=== PATIENT | male | born 1990 | race Caucasian/White ===

== ENCOUNTER 2018-08-31 21:36 | Emergency (ER) | payer SELFPAY ==
[~2018-08-31] VITALS: Ht 185.4 cm; Wt 99.8 kg
[~2018-08-31 21:36] MED LIST: ASPI-789 PO; CEPH-38 PO; CYCL10TA9 PO; GUAI5LIQ3 PO; HYDR-707 PO; METH4TAB PO; ONDN4T PO; PANT40TA2 PO; SULF1TAB38 PO
--- OUTSIDE RECORDS SUMMARY | 2018-08-31 21:42 | XMS REPORT | Continuity of Care Document ---
Author Author [facility] Organization [facility] Address Unknown Phone Unavailable Care Team Providers Care Telecommunications Technician Name Role Phone JACQUELINE HOUSER MD PP Insurance Providers Payer Name Policy Number Subscriber Name Relationship Self Pay Fortino Herrera 01 Self / Same As Patient Advance Directives Directive Response Recorded Date Advance Directives N 10/13/12 8:51pm Health Care Power of New Car Sales Manager N 10/13/12 8:51pm Organ Donor Y 10/13/12 8:51pm Problems No Known Problems or Medical conditions. Family History History Response Recorded Date/Time Hx Family Cancer Y GREAT GRANDMOTHER - BREAST CANCER, GREAT UNCLE - UNKNOWN WHAT KIND 08/20/10 2:05am Hx Family Breast Cancer Y GREAT GRANDMOTHER 08/20/10 2:05am Hx Family Lung Cancer UNKNOWN 08/20/10 2: 05am Hx Family Colorectal Cancer N 08/20/10 2: 05am Hx Family Cardiac Disorders UNKNOWN 08/20 2:05am Hx Family Cystic Fibrosis N 08/20/10 2: 05am Social History History Response Recorded Date/Time Alcohol Use Rarely Uses 10/13/12 8:51pm Recreational Drug Use N 10/13/12 8:51pm Sexually Transmitted Disease N 10/13/12 8 :51pm Allergies, Adverse Reactions, Alerts Allergen Type Severity Reaction Last Updated No Known Drug Allergies 09/20/12 Medications Medication Dose Units Route Sig Qty Days Guaifenesin/Dextromethorphan (Guaifenesin-Dm Solution) 10 Ml PO Q4H PRN 4 Cephalexin Monohydrate (Keflex) 1 Each PO TID 7 Methylprednisolone (Medrol Dose Pack) 1 Packet PO UD 1 Cyclobenzaprine HCl (Cyclobenzaprine Hcl) 1 Each PO Q8HR PRN 20 Acetaminophen/Hydrocodone Bitart (Lortab 5-500 Tablet) 1 Each PO Q 4 - 6 HR PRN 14 Response Recorded Date/Time Status not known Unknown Results Test Date Result Interp. Ref. Range Acetaminophen Level August 21, 2010 8:13am < 10 UG/ML L 10.0-30.0 Acetaminophen Screen August 20, 2010 12:59am POSITIVE H - Alanine Aminotransferase (ALT/SGPT) June 09, 2012 9: 45pm 30 U/L N 30-65 Albumin June 09, 2012 9:45pm 3.9 G/ DL N 3.4-5.0 Alkaline Phosphatase June 09, 2012 9:45pm 98 U/L N 50-136 Aspartate Amino Transf (AST/SGOT) June 09, 2012 9:45pm 14 U/L L 15-37 BUN/Creatinine Ratio June 09, 2012 9:45pm 15 - Basophils # (Auto) June 09, 2012 9:45pm 0.0 10^3/uL N 0.0-0.1 Basophils (%) (Auto) June 09, 2012 9:45pm 0 % N 0-10 Blood Urea Nitrogen June 09, 2012 9:45pm 18 MG/DL N 7-18 Calcium Level June 09, 2012 9:45pm 8.8 MG/DL N 8.5-10.1 Carbon Dioxide Level June 09, 2012 9:45pm 26 MMOL/L N 21-32 Chloride Level June 09, 2012 9:45pm 103 MMOL/L N 101-110 Creatinine June 09, 2012 9:45pm 1.2 MG/DL N 0.6-1.3 Eosinophils # (Auto) June 09, 2012 9:45pm 0.0 10^3/uL N 0.0-0.3 Eosinophils (%) (Auto) June 09, 2012 9:45pm 0 % N 0-10 Glucose Level June 09, 2012 9:45pm 140 MG/DL H 74-106 Group A Streptococcus Screen June 09, 2012 10:23pm NEGATIVE - Hematocrit June 09, 2012 9:45pm 43 % N 40-54 Hemoglobin June 09, 2012 9:45pm 15.8 G/DL N 13.3-17.7 Lymphocytes # (Auto) June 09, 2012 9:45pm 1.7 X 10^3 N 1.0-4.0 Lymphocytes (%) (Auto) June 09, 2012 9:45pm 15 % N 12-44 Mean Corpuscular Hemoglobin June 09, 2012 9:45pm 33 PG N 25-34 Mean Corpuscular Hemoglobin Concent June 09, 2012 9: 45pm 36 G/DL N 32-36 Mean Corpuscular Volume June 09, 2012 9:45pm 91 FL N 80-99 Mean Platelet Volume June 09, 2012 9:45pm 10.3 FL N 7.4-10.4 Monocytes # (Auto) June 09, 2012 9:45pm 0.8 X 10^3 N 0.0-1.0 Monocytes (%) (Auto) June 09, 2012 9:45pm 7 % N 0-12 Neutrophils # (Auto) June 09, 2012 9:45pm 8.7 X 10^3 H 1.8-7.8 Neutrophils (%) (Auto) June 09, 2012 9:45pm 77 % H 42-75 Platelet Count June 09, 2012 9:45pm 250 10^3/uL N 130-400 Potassium Level June 09, 2012 9:45pm 3.7 MMOL/L N 3.6-5.0 Red Blood Count June 09, 2012 9:45pm 4.77 10^6/uL N 4.35-5.85 Red Cell Distribution Width June 09, 2012 9:45pm 13.0 % N 10.0-14.5 Salicylates Level August 20, 2010 12:52am 3.8 MG/DL N 2.8-20.0 Sodium Level June 09, 2012 9:45pm 137 MMOL/L N 135-145 Total Bilirubin June 09, 2012 9:45pm 0.5 MG/DL N 0.0-1.0 Total Protein June 09, 2012 9:45pm 7.1 G/DL N 6.4-8.2 Ur Tricyclic Antidepressants Screen August 20, 2010 12:59am NEGATIVE - Urine Amorphous Sediment June 09, 2012 10:17pm FEW ÁNGELA URATES /LPF H - Urine Amphetamines Screen August 20, 2010 12:59am NEGATIVE - Urine Bacteria June 09, 2012 10:17pm NEGATIVE /HPF - Urine Barbiturates Screen August 20, 2010 12:59am NEGATIVE - Urine Benzodiazepines Screen August 20, 2010 12:59am NEGATIVE - Urine Bilirubin June 09, 2012 10:17pm NEGATIVE - Urine Casts June 09, 2012 10:17pm NONE /LPF - Urine Clarity June 09, 2012 10:17pm CLEAR - Urine Cocaine Screen August 20, 2010 12:59am NEGATIVE - Urine Color June 09, 2012 10:17pm YELLOW - Urine Crystals June 09, 2012 10:17pm PRESENT /LPF H - Urine Culture Indicated June 09, 2012 10:17pm NO - Urine Glucose (UA) June 09, 2012 10:17pm TRACE H - Urine Ketones June 09, 2012 10:17pm NEGATIVE - Urine Leukocyte Esterase June 09, 2012 10:17pm NEGATIVE - Urine Methamphetamines Screen August 20, 2010 12:59am NEGATIVE - Urine Mucus June 09, 2012 10:17pm SMALL /LPF H - Urine Nitrite June 09, 2012 10:17pm NEGATIVE - Urine Opiates Screen August 20, 2010 12:59am POSITIVE H - Urine Phencyclidine Screen August 20, 2010 12:59am NEGATIVE - Urine Protein June 09, 2012 10:17pm NEGATIVE - Urine RBC June 09, 2012 10:17pm NONE /HPF - Urine Specific [place] June 09, 2012 10:17pm 1.025 H - Urine Urobilinogen June 09, 2012 10:17pm 1 MG/DL - Urine WBC June 09, 2012 10:17pm 0-2 /HPF - Urine pH June 09, 2012 10:17pm 6 - White Blood Count June 09, 2012 9:45pm 11.2 10^3/uL H 4.3-11.0 Serum Alcohol August 20, 2010 12:52am < 5 MG/DL -5 Glucometer August 21, 2010 6:44am 79 MG/ DL N 70-110 Lab Scanned Report December 06, 2011 1:36pm LAB Reports [id number] - Estimat Glomerular Filtration Rate June 09, 2012 9:45pm > 60 - Urine Methadone Screen August 20, 2010 12:59am NEGATIVE - Urine Cannabinoids Screen August 20, 2010 12:59am NEGATIVE - Urine RBC (Auto) June 09, 2012 10:17pm NEGATIVE - Procedures Procedure Code Date Throat Culture 06/09/12 Encounters Encounter Location Date/Time Departed Emergency Room [facility] 02/15 8:42pm Registered Emergency Room [facility] 09/17/12 1:28pm Discharged Inpatient [facility] 2:05am
--- OUTSIDE RECORDS SUMMARY | 2018-08-31 21:43 | XMS REPORT | Continuity of Care Document ---
Author Organization Unknown Address Unknown Allergies Active Description Code Type Severity Reaction Onset Reported/Identified Relationship to Patient Clinical Status Yes No Known Drug Allergies [id number] Drug Allergy Unknown N/A 09/20/2012 Yes No Known Allergies No Known Allergies Drug Allergy Unknown N/A 2014 Medications There is no data. Problems Date Dx Coded Attending Type Code Diagnosis Diagnosed By 08/21/2010 Ot 311 DEPRESSIVE DISORDER NEC 08/21/2010 Ot 965.09 POISONING- OPIATES NEC 08/21/2010 Ot 967.8 POIS-SEDATIVE /HYPNOT NEC 08/21/2010 Ot 972.6 POIS- ANTIHYPERTEN AGENT 08/21/2010 Ot E849.0 ACCIDENT IN HOME 08/21/2010 Ot E950.0 SUICIDE- ANALGESICS 08/21/2010 Ot E950.2 SUICIDE- SEDAT/HYPNOTIC 08/21/2010 Ot E950.4 SUICIDE-DRUG /MEDICIN NEC 06/09/2012 Ot 708.9 URTICARIA NOS 06/09/2012 Ot 782.1 NONSPECIF SKIN ERUPT NEC 06/09/2012 Ot 708.9 URTICARIA NOS 06/09/2012 Ot 782.1 NONSPECIF SKIN ERUPT NEC 06/17/2012 Ot 850.5 CONCUSSION W COMA NOS 06/17/2012 Ot 873.42 OPEN WOUND OF FOREHEAD 06/17/2012 Ot 959.01 HEAD INJURY , NOS 06/17/2012 Ot E000.8 OTHER EXTERNAL CAUSE STATUS 06/17/2012 Ot E849.0 ACCIDENT IN HOME 06/17/2012 Ot E888.1 FALL STRIKING OBJECT NEC 06/22/2012 Ot V58.32 ENCOUNTER FOR REMOVAL OF SUTURES 08/29/2012 MIK PALACIO, ALOK Abbott Ot 078.11 CONDYLOMA ACUMINATUM 08/29/2012 ALOK HOUSER MD Ot 569.3 RECTAL ANAL HEMORRHAGE 09/17/2012 MARISA PALACIO, MADISON Soler Ot 604.0 ORCHITIS WITH ABSCESS 10/13/2012 MIK PALACIO, ALOK Abbott Ot 462 ACUTE PHARYNGITIS 10/13/2012 MIK PALACIO, ALOK Abbott Ot 466.0 ACUTE BRONCHITIS 03/21/2016 [facility] Lori Ot F17.210 NICOTINE DEPENDENCE, CIGARETTES, UNCOMPL 03/21/2016 JU[facility] PIOTR K Ot R10.84 GENERALIZED [facility]BDOMINAL [facility] DIZZINESS AND GIDDINESS 03/21/2016 [facility] R53.83 OTHER FATIGUE 03/21/2016 [facility]55 SYNCOPE AND COLLAPSE 03/21/2016 [place] [facility] LUZ Ot S00.03XA CONTUSION OF SCALP, INITIAL ENCOUNTER 03/21/2016 JU[facility] PIOTR LUZ Ot S09.90XA UNSPECIFIED INJURY OF HEAD, INITIAL ENCO 03/21/2016 [facility] PIOTR Ot S16.1XXA STRAIN OF MUSCLE, FASCIA AND TENDON AT N 03/21/2016 [facility] PI[facility] LUZ Ot S29.012A STRAIN OF MUSCLE AND TENDON OF BACK WALL 03/21/2016 JUAN DOPIOTR Ot S39.012A STRAIN OF MUSCLE, FASCIA AND TENDON OF L 03/21/2016 [facility] PIOTR Ot W18.30XA FALL ON SAME LEVEL, UNSPECIFIED, INITIAL 03/21/2016 [facility] Lori Ot Y92.[address] OF OCCURRENCE OF THE EX 03/21/2016 [facility] PIOT[facility] Lori Ot Y93.9 ACTIVITY, UNSPECIFIED 03/21/2016 [facility] Lori Ot Y99.8 OTHER EXTERNAL CAUSE STATUS 03/22/2016 [facility] PI[facility] Lori Ot F17.210 NICOTINE DEPENDENCE, CIGARETTES, UNCOMPL 03/22/2016 [facility] PI[facility] LUZ Ot R10.84 GENERALIZED ABDOMINAL PAIN 03/22/2016 [facility] DIZZINESS AND GIDDINESS 03/22/2016 JUAN DOPIOTR Ot R53.83 OTHER FATIGUE 03/22/2016 [facility] SYNCOPE AND COLLAPSE 03/22/2016 [facility] S00.03XA CONTUSION OF SCALP, INITIAL ENCOUNTER 03/22/2016 [facility] LUZ Ot S09.90XA UNSPECIFIED INJURY OF HEAD, INITIAL ENCO 03/22/2016 [place] [facility] K Ot S16.1XXA STRAIN OF MUSCLE, FASCIA AND TENDON AT N 03/22/2016 [facility] PI[facility] Lori Ot S29.012A STRAIN OF MUSCLE AND TENDON OF BACK WALL 03/22/2016 [facility] PI[facility] Sandoval Ot S39.012A STRAIN OF MUSCLE, FASCIA AND TENDON OF L 03/22/2016 [facility] W18.30XA FALL ON SAME LEVEL, UNSPECIFIED, INITIAL 03/22/2016 [facility] PIOT[facility] K Ot Y92.[address] OF OCCURRENCE OF THE EX 03/22/2016 [facility] Lori Ot Y93.9 ACTIVITY, UNSPECIFIED 03/22/2016 [facility] PI[facility] K Ot Y99.8 OTHER EXTERNAL CAUSE STATUS 03/25/2016 [facility] PI[facility] K Ot F17.210 NICOTINE DEPENDENCE, CIGARETTES, UNCOMPL 03/25/2016 [facility] PIOTR K Ot R10.84 GENERALIZED ABDOMINAL PAIN 03/25/2016 [facility] PIOTR K Ot R42 DIZZINESS AND GIDDINESS 03/25/2016 [facility] PIOT[facility] K Ot R53.83 OTHER FATIGUE 03/25/2016 [facility] PI[facility] Lori Ot R55 SYNCOPE AND COLLAPSE 03/25/2016 [facility] PI[facility] K Ot S00.03XA CONTUSION OF SCALP, INITIAL ENCOUNTER 03/25/2016 [facility] PIOTR K Ot S09.90XA UNSPECIFIED INJURY OF HEAD, INITIAL ENCO 03/25/2016 [place] [facility] Sandoval Ot S16.1XXA STRAIN OF MUSCLE, FASCIA AND TENDON AT N 03/25/2016 [facility] PIOT[facility] Sandoval Ot S29.012A STRAIN OF MUSCLE AND TENDON OF BACK WALL 03/25/2016 [facility] PIOTR Sandoval Ot S39.012A STRAIN OF MUSCLE, FASCIA AND TENDON OF L 03/25/2016 [facility] W18.30XA FALL ON SAME LEVEL, UNSPECIFIED, INITIAL 03/25/2016 [facility] PIOTR K Ot Y92.[address] OF OCCURRENCE OF THE EX 03/25/2016 [facility] PIOTR K Ot Y93.9 ACTIVITY, UNSPECIFIED 03/25/2016 [facility] PIOTR Sandoval Ot Y99.8 OTHER EXTERNAL CAUSE STATUS 03/27/2016 [facility] PI[facility] LUZ Ot F17.210 NICOTINE DEPENDENCE, CIGARETTES, UNCOMPL 03/27/2016 [facility] PI[facility] K Ot R10.84 GENERALIZED ABDOMINAL PAIN 03/27/2016 [place] [facility] K Ot R42 DIZZINESS AND GIDDINESS 03/27/2016 [place] [facility] Ot R53.83 OTHER FATIGUE 03/27/2016 [place] PIOT[facility] Ot R55 SYNCOPE AND COLLAPSE 03/27/2016 [place] PI[facility] K Ot S00.03XA CONTUSION OF SCALP, INITIAL ENCOUNTER 03/27/2016 [facility] PI[facility] K Ot S09.90XA UNSPECIFIED INJURY OF HEAD, INITIAL ENCO 03/27/2016 [place] [facility] K Ot S16.1XXA STRAIN OF MUSCLE, FASCIA AND TENDON AT N 03/27/2016 [facility] PIOTR Ot S29.012A STRAIN OF MUSCLE AND TENDON OF BACK WALL 03/27/2016 [facility] S39.012A STRAIN OF MUSCLE, FASCIA AND TENDON OF L 03/27/2016 [place] [facility] Lori Ot W18.30XA FALL ON SAME LEVEL, UNSPECIFIED, INITIAL 03/27/2016 [facility] PIOT[facility] Sandoval Ot Y92.[address] OF OCCURRENCE OF THE EX 03/27/2016 [facility] PIOT[facility] Lori Ot Y93.9 ACTIVITY, UNSPECIFIED 03/27/2016 [facility] Sandoval Ot Y99.8 OTHER EXTERNAL CAUSE STATUS 04/05/2016 [facility] PI[facility] Sandoval Ot F17.210 NICOTINE DEPENDENCE, CIGARETTES, UNCOMPL 04/05/2016 [facility] PI[facility] Lori Ot R10.84 GENERALIZED ABDOMINAL PAIN 04/05/2016 [facility] PIOT[facility] K Ot R42 DIZZINESS AND GIDDINESS 04/05/2016 [facility] PIOTR Ot R53.83 OTHER FATIGUE 04/05/2016 [place] [facility] K Ot R55 SYNCOPE AND COLLAPSE 04/05/2016 [place] [facility] K Ot S00.03XA CONTUSION OF SCALP, INITIAL ENCOUNTER 04/05/2016 [facility] PIOTR Ot S09.90XA UNSPECIFIED INJURY OF HEAD, INITIAL ENCO 04/05/2016 PIOTR MARTINEZ DO K Ot S16.1XXA STRAIN OF MUSCLE, FASCIA AND TENDON AT N 04/05/2016 [facility] PIOTR K Ot S29.012A STRAIN OF MUSCLE AND TENDON OF BACK WALL 04/05/2016 ANDRIA MARTINEZ DOA K Ot S39.012A STRAIN OF MUSCLE, FASCIA AND TENDON OF L 04/05/2016 PIOTR MARTINEZ DO K Ot W18.30XA FALL ON SAME LEVEL, UNSPECIFIED, INITIAL 04/05/2016 PIOTR MARTINEZ DO K Ot Y92.[address] OF OCCURRENCE OF THE EX 04/05/2016 [facility] PIOTR K Ot Y93.9 ACTIVITY, UNSPECIFIED 04/05/2016 [facility] PIOTR K Ot Y99.8 OTHER EXTERNAL CAUSE STATUS 04/14/2016 EVONNE CARCAMO MD J Ot R11.2 NAUSEA WITH VOMITING, UNSPECIFIED 04/14/2016 WINST[place] CARCAMO MDUS J Ot R55 SYNCOPE AND COLLAPSE 04/16/2016 CARLOS ALBERTO PALACIO EVONNE J Ot R11.2 NAUSEA WITH VOMITING, UNSPECIFIED 04/16/2016 CARLOS ALBERTO PALACIO EVONNE J Ot R55 SYNCOPE AND COLLAPSE 04/17/2016 CARLOS ALBERTO PALACIO EVONNE J Ot R11.2 NAUSEA WITH VOMITING, UNSPECIFIED 04/17/2016 CARLOS ALBERTO PALACIO EVONNE J Ot R55 SYNCOPE AND COLLAPSE 07/27/2016 CARLOS ALBERTO PALACIO EVONNE J Ot R11.2 NAUSEA WITH VOMITING, UNSPECIFIED 07/27/2016 CARLOS ALBERTO PALACIO EVONNE J Ot R55 SYNCOPE AND COLLAPSE Procedures There is no data. Results Test Result Range Complete blood count (CBC) with automated white blood cell (WBC) differential - 03/21/16 18:15 Blood leukocytes automated count (number/volume) 6.7 10*3/uL 4.3-11.0 Blood erythrocytes automated count (number/volume) 4.92 10*6/uL 4.35-5.85 Venous blood hemoglobin measurement (mass/volume) 15.6 g/dL 13.3-17.7 Blood hematocrit (volume fraction) 45 % 40-54 Automated erythrocyte mean corpuscular volume 91 [foz_us] 80-99 Automated erythrocyte mean corpuscular hemoglobin (mass per erythrocyte) 32 pg 25-34 Automated erythrocyte mean corpuscular hemoglobin concentration measurement ( mass/volume) 35 g/dL 32-36 Automated erythrocyte distribution width ratio 13.2 % 10.0-14.5 Automated blood platelet count (count/volume) 219 10*3/uL 130-400 Automated blood platelet mean volume measurement 11.0 [foz_us] 7.4-10.4 Automated blood neutrophils/100 leukocytes 47 % 42-75 Automated blood lymphocytes/100 leukocytes 39 % 12-44 Blood monocytes/100 leukocytes 9 % 0-12 Automated blood eosinophils/100 leukocytes 4 % 0-10 Automated blood basophils/100 leukocytes 1 % 0-10 Blood neutrophils automated count (number/volume) 3.1 10*3 1.8-7.8 Blood lymphocytes automated count (number/volume) 2.6 10*3 1.0-4.0 Blood monocytes automated count (number/volume) 0.6 10*3 0.0-1.0 Automated eosinophil count 0.3 10*3/uL 0.0-0.3 Automated blood basophil count (count/volume) 0.1 10*3/uL 0.0-0.1 PT panel in platelet poor plasma by coagulation assay - 03/21/16 18:15 Prothrombin time (PT) in platelet poor plasma by coagulation assay 12.8 s 12.2-14.7 INR in platelet poor plasma or blood by coagulation assay 1.0 0.8-1.4 Activated partial thromboplastin time (aPTT) in platelet poor plasma bycoagulation assay - 03/21/16 18:15 Activated partial thromboplastin time (aPTT) in platelet poor plasma bycoagulation assay 20 s 24-35 Comprehensive metabolic panel - 03/21/16 18:15 Serum or plasma sodium measurement (moles/volume) 138 mmol/L 135-145 Serum or plasma potassium measurement (moles/volume) 4.2 mmol/L 3.6-5.0 Serum or plasma chloride measurement (moles/volume) 105 mmol/L 98-107 Carbon dioxide 23 mmol/L 21-32 Serum or plasma anion gap determination (moles/volume) 10 mmol/L 5-14 Serum or plasma urea nitrogen measurement (mass/volume) 14 mg/dL 7-18 Serum or plasma creatinine measurement (mass/volume) 1.09 mg/dL 0.60-1.30 Serum or plasma urea nitrogen/creatinine mass ratio 13 NRG Serum or plasma creatinine measurement with calculation of estimated glomerular filtration rate > NRG Serum or plasma glucose measurement (mass/volume) 91 mg/dL 70-105 Serum or plasma calcium measurement (mass/volume) 9.3 mg/dL 8.5-10.1 Serum or plasma total bilirubin measurement (mass/volume) 0.3 mg/dL 0.1-1.0 Serum or plasma alkaline phosphatase measurement (enzymatic activity/volume) 93 U/L 40-136 Serum or plasma aspartate aminotransferase measurement (enzymatic activity/ volume) 31 U/L 5-34 Serum or plasma alanine aminotransferase measurement (enzymatic activity/volume ) 45 U/L 0-55 Serum or plasma protein measurement (mass/volume) 6.7 g/dL 6.4-8.2 Serum or plasma albumin measurement (mass/volume) 4.2 g/dL 3.2-4.5 Magnesium - 03/21/16 18:15 Magnesium 2.1 mg/dL 1.8-2.4 Serum or plasma creatine kinase measurement (enzymatic activity/volume) - 03/21 18:15 Serum or plasma creatine kinase measurement (enzymatic activity/volume) 73 U/L 30-200 Serum or plasma creatine kinase MB measurement (enzymatic activity/volume) - 18:15 Serum or plasma creatine kinase MB measurement (enzymatic activity/volume) 0.5 ng/mL <6.6 Serum or plasma troponin i.cardiac measurement (mass/volume) - 03/21/16 18:15 Serum or plasma troponin i.cardiac measurement (mass/volume) < ng/ mL <0.30 Serum or plasma thyrotropin measurement by detection limit <=0.05 miu/l (units/ volume) - 03/21/16 18:15 Serum or plasma thyrotropin measurement by detection limit <=0.05 miu/l (units/ volume) 2.71 u[iU]/mL 0.35-4.94 Serum or plasma salicylates measurement (mass/volume) - 03/21/16 18:15 Serum or plasma salicylates measurement (mass/volume) < mg/dL 5.0-20.0 Serum or plasma acetaminophen measurement (mass/volume) - 03/21/16 18:15 Serum or plasma acetaminophen measurement (mass/volume) < ug/mL 10-30 Serum or plasma ethanol measurement (mass/volume) - 11/16/16 18:15 Serum or plasma ethanol measurement (mass/volume) < mg/dL <10 Complete urinalysis with reflex to culture - 03/21/16 19:28 Urine color determination YELLOW NRG Urine clarity determination CLEAR NRG Urine pH measurement by test strip 7 5-9 Specific gravity of urine by test strip 1.010 1.016- 1.022 Urine protein assay by test strip, semi-quantitative NEGATIVE NEGATIVE Urine glucose detection by automated test strip NEGATIVE NEGATIVE Erythrocytes detection in urine sediment by light microscopy NEGATIVE NEGATIVE Urine ketones detection by automated test strip NEGATIVE NEGATIVE Urine nitrite detection by test strip NEGATIVE NEGATIVE Urine total bilirubin detection by test strip NEGATIVE NEGATIVE Urine urobilinogen measurement by automated test strip (mass/volume) NORMAL NORMAL Urine leukocyte esterase detection by dipstick NEGATIVE NEGATIVE Automated urine sediment erythrocyte count by microscopy (number/high power field) NONE NRG Automated urine sediment leukocyte count by microscopy (number/high power field ) RARE NRG Bacteria detection in urine sediment by light microscopy NEGATIVE NRG Crystals detection in urine sediment by light microscopy NONE NRG Casts detection in urine sediment by light microscopy NONE NRG Mucus detection in urine sediment by light microscopy SMALL NRG Complete urinalysis with reflex to culture NO NRG Urine drug screening test - 03/21/16 19:28 Urine phencyclidine detection by screening method NEGATIVE NEGATIVE Urine benzodiazepines detection by screening method NEGATIVE NEGATIVE Urine cocaine detection NEGATIVE NEGATIVE Urine amphetamines detection by screening method NEGATIVE NEGATIVE Urine methamphetamine detection by screening method NEGATIVE NEGATIVE Urine cannabinoids detection by screening method NEGATIVE NEGATIVE Urine opiates detection by screening method NEGATIVE NEGATIVE Urine barbiturates detection NEGATIVE NEGATIVE Screening urine tricyclic antidepressants detection NEGATIVE NEGATIVE Urine methadone detection by screening method NEGATIVE NEGATIVE Urine oxycodone detection NEGATIVE NEGATIVE Urine propoxyphene detection NEGATIVE NEGATIVE Capillary blood glucose measurement by glucometer (mass/volume) - 04/14/16 14: 22 Capillary blood glucose measurement by glucometer (mass/volume) 121 mg/dL 70-110 Complete blood count (CBC) with automated white blood cell (WBC) differential - 04/14/16 14:51 Blood leukocytes automated count (number/volume) 9.0 10*3/uL 4.3-11.0 Blood erythrocytes automated count (number/volume) 5.18 10*6/uL 4.35-5.85 Venous blood hemoglobin measurement (mass/volume) 16.5 g/dL 13.3-17.7 Blood hematocrit (volume fraction) 47 % 40-54 Automated erythrocyte mean corpuscular volume 92 [foz_us] 80-99 Automated erythrocyte mean corpuscular hemoglobin (mass per erythrocyte) 32 pg 25-34 Automated erythrocyte mean corpuscular hemoglobin concentration measurement ( mass/volume) 35 g/dL 32-36 Automated erythrocyte distribution width ratio 13.1 % 10.0-14.5 Automated blood platelet count (count/volume) 187 10*3/uL 130-400 Automated blood platelet mean volume measurement 10.6 [foz_us] 7.4-10.4 Automated blood neutrophils/100 leukocytes 86 % 42-75 Automated blood lymphocytes/100 leukocytes 6 % 12-44 Blood monocytes/100 leukocytes 6 % 0-12 Automated blood eosinophils/100 leukocytes 2 % 0-10 Automated blood basophils/100 leukocytes 0 % 0-10 Blood neutrophils automated count (number/volume) 7.7 10*3 1.8-7.8 Blood lymphocytes automated count (number/volume) 0.6 10*3 1.0-4.0 Blood monocytes automated count (number/volume) 0.5 10*3 0.0-1.0 Automated eosinophil count 0.2 10*3/uL 0.0-0.3 Automated blood basophil count (count/volume) 0.0 10*3/uL 0.0-0.1 Comprehensive metabolic panel - 04/14/16 14:51 Serum or plasma sodium measurement (moles/volume) 137 mmol/L 135-145 Serum or plasma potassium measurement (moles/volume) 4.4 mmol/L 3.6-5.0 Serum or plasma chloride measurement (moles/volume) 106 mmol/L 98-107 Carbon dioxide 20 mmol/L 21-32 Serum or plasma anion gap determination (moles/volume) 11 mmol/L 5-14 Serum or plasma urea nitrogen measurement (mass/volume) 15 mg/dL 7-18 Serum or plasma creatinine measurement (mass/volume) 1.16 mg/dL 0.60-1.30 Serum or plasma urea nitrogen/creatinine mass ratio 13 NRG Serum or plasma creatinine measurement with calculation of estimated glomerular filtration rate > NRG Serum or plasma glucose measurement (mass/volume) 109 mg/dL 70-105 Serum or plasma calcium measurement (mass/volume) 9.1 mg/dL 8.5-10.1 Serum or plasma total bilirubin measurement (mass/volume) 0.6 mg/dL 0.1-1.0 Serum or plasma alkaline phosphatase measurement (enzymatic activity/volume) 94 U/L 40-136 Serum or plasma aspartate aminotransferase measurement (enzymatic activity/ volume) 17 U/L 5-34 Serum or plasma alanine aminotransferase measurement (enzymatic activity/volume ) 26 U/L 0-55 Serum or plasma protein measurement (mass/volume) 6.9 g/dL 6.4-8.2 Serum or plasma albumin measurement (mass/volume) 4.4 g/dL 3.2-4.5 Blood manual differential performed detection - 04/14/16 14:51 Blood monocytes/100 leukocytes 4 % NR Manual blood segmented neutrophils/100 leukocytes 89 % NRG Manual blood lymphocytes/100 leukocytes 2 % NRG Manual eosinophils/100 leukocytes in nose 1 % NRG Manual blood basophils/100 leukocytes 1 % NRG Blood lymphocytes variant/100 leukocytes 3 % NR Blood erythrocyte morphology finding identification NORMAL [facility] Radiology Report from SANDRA on 11/24/2014 07:17:00 DIAGNOSTIC IMAGING REPORT [facility] - [address] [place] [address] PHONE #: [phone] FAX #: [phone] ------- Name: CHARMAINE HERRERA Loc: [facility] Radiology No: : 1989 Age: 24 Sex: M Status: DEP ER Unit No: [id number] Phys: Caleb Whaley APRN Acct: [id number] Reason For Exam: cough, pain Exam Date: 11/23/2014 EXAMS: CPT CODE: [id number] CHEST AP/PA LATERAL 73919 TIME OF EXAM: 11/23/2014 11:47 PM REASON FOR EXAM: cough, pain COMPARISON: None. PA and lateral views of the chest were obtained lines and tubes: None lungs and pleura: clear lungs with no pleural effusion. No pneumothorax vascularity: normal cardiac and mediastinal silhouette: normal other significant findings: Note is made of a normal variant, an azygos fissure IMPRESSION: 1. No acute process. at 0712 Reported and signed by: SALAZAR KIMBALL MD CC: Technologist: TOD DUNCAN Transcribed Date/Time: 2014 (711)Surgical Instrument Technician: MAULIK Printed Date/ Time: 11/24/2014 (07) BATCH NO: N/A PAGE 1 Signed Report Encounters ACCT No. Visit Date/Time Discharge Status Pt. Type Provider Facility Loc./Unit Complaint [id number] 04/14/2016 14:05:00 04/14/2016 16:09:00 DIS Emergency CARLOS ALBERTO PALACIO, EVONNE Zavala [facility] ER FAINTED/HEAD INJ/VOMITING [id number] 03/21/2016 17:59:00 03/21/2016 20:41:00 DIS Emergency PIOTR MARTINEZ DO [facility] ER DIZZINESS [id number] 10/13/2012 20:42:00 10/13/2012 21:42:00 DIS Emergency ALOK HOUSER MD [facility] ER WHEEZING,SORE THROAT [id number] 09/17/2012 13:28:00 09/17/2012 15:12:00 DIS Emergency MADISON CUNNINGHAM MD [facility] ER POSS ABSCESS [id number] 08/29/2012 20:34:00 08/29/2012 21:08:00 DIS Emergency ALOK HOUSER MD [facility] ER GENITAL BLEEDING [id number] 08/28/2012 12:33:00 08/28/2012 23:59:59 CLS Outpatient MAJOR, SOLIS RELIGIOUS ACTIVITIES DIRECTOR [facility] QUICK LUMP ON SCROTUM [id number] 04/17/2017 16:08:00 Document Registration [id number] 04/17/2017 16:08:00 Document Registration [id number] 04/17/2017 16:08:00 Document Registration [id number] 06/22/2012 17:20:00 Document Registration [id number] 06/17/2012 09:50:00 Document Registration [id number] 06/09/2012 21:16:00 Document Registration [id number] 06/09/2012 04:29:00 Document Registration [id number] 08/20/2010 02:05:00 Document Registration [id number] 11/23/2014 23:19:00 11/24/2014 00:50:00 [facility]EDW [email or web address] 11/23/2014 23:52:50 ACT Document Registration
--- OUTSIDE RECORDS SUMMARY | 2018-08-31 21:43 | XMS REPORT | Continuity of Care Document ---
Author Author [facility] Organization [facility] Address Unknown Phone Unavailable Care Team Providers Care Annual Giving Manager Name Role Phone JACQUELINE HOUSER MD PP Insurance Providers Payer Name Policy Number Subscriber Name Relationship Self Pay Fortino Herrera 01 Self / Same As Patient Advance Directives Directive Response Recorded Date Advance Directives N 09/17/12 1:37pm Health Care Power of Outside Machinist Apprentice N 09/17/12 1:37pm Organ Donor Y 09/17/12 1:37pm Problems No Known Problems or Medical conditions. Family History History Response Recorded Date/Time Hx Family Cancer Y GREAT GRANDMOTHER - BREAST CANCER, GREAT UNCLE - UNKNOWN WHAT KIND 08/20/10 2:05am Hx Family Breast Cancer Y GREAT GRANDMOTHER 08/20/10 2:05am Hx Family Lung Cancer UNKNOWN 08/20/10 2: 05am Hx Family Colorectal Cancer N 08/20/10 2: 05am Social History History Response Recorded Date/Time Alcohol Use Rarely Uses 09/17/12 1:37pm Recreational Drug Use N 09/17/12 1:37pm Allergies, Adverse Reactions, Alerts Allergen Type Severity Reaction Last Updated Amoxicillin Allergy 08/29/12 Medications Medication Dose Units Route Sig Qty Days Trimethoprim/Sulfamethoxazole (Bactrim Ds) 1 Ea PO BID 10 Methylprednisolone (Medrol Dose Pack) 1 Packet PO UD 1 Cyclobenzaprine HCl (Cyclobenzaprine Hcl) 1 Each PO Q8HR PRN 20 Acetaminophen/Hydrocodone Bitart (Lortab 5-500 Tablet) 1 Each PO Q 4 - 6 HR PRN 14 Immunizations Name Given Type influenza, split (incl. purified surface antigen) 06/22/12 A Response Recorded Date/Time Status not known Unknown [...] 2012 10:17pm NONE /HPF - Urine Specific [place] June 09, 2012 10:17pm 1.025 H - [...] Report December 06, 2011 1:36pm LAB Reports [id number] - Estimat Glomerular Filtration Rate June 09, 2012 9:45pm > 60 - Urine Methadone Screen August 20, 2010 12:59am NEGATIVE - Urine Cannabinoids Screen August 20, 2010 12:59am NEGATIVE - Urine RBC (Auto) June 09, 2012 10:17pm NEGATIVE - Procedures Procedure Code Date Throat Culture 06/09/12 Encounters Encounter Location Date/Time Registered Emergency Room [facility] 09/17/12 1:28pm Departed Emergency Room [facility] 8:34pm Discharged Inpatient [facility] 2:05am
--- OUTSIDE RECORDS SUMMARY | 2018-08-31 21:43 | XMS REPORT | Continuity of Care Document ---
Author Author [facility] Organization [facility] Address Unknown Phone Unavailable Care Team Providers Care Sizing End Bander Name Role Phone JACQUELINE HOUSER MD PP Insurance Providers Payer Name Policy Number Subscriber Name Relationship Self Pay Fortino Herrera 01 Self / Same As Patient Advance Directives Directive Response Recorded Date Advance Directives N 10/13/12 8:51pm Health Care Power of Strategic Debriefing Officer N 10/13/12 8:51pm Organ Donor Y 10/13/12 [...] 8:51pm Recreational Drug Use N 10/13/12 8:51pm Allergies, Adverse Reactions, Alerts Allergen Type Severity [...] Recorded Date/Time Status not known Unknown Results No Known Relevant Diagnostic Tests, Laboratory Data and/or Discharge Summary. Encounters Encounter Location Date/Time Departed Emergency Room [facility] 02/15 8:42pm Registered Emergency Room [facility] 09/17/12 1:28pm Discharged Inpatient [facility] 2:05am
--- NOTE | 2018-08-31 21:50 | NUR ---
PT TO CT DEPT VIA COT, NO S/S OF DISTRESS
[2018-08-31 21:52] LABS: BASOPHILS # (AUTO) 0.1 10^3/uL (0.0-0.1); BASOPHILS % (AUTO) 1 % (0-10); EOSINOPHILS # (AUTO) 0.5 10^3/uL (0.0-0.3); EOSINOPHILS % (AUTO) 7 % (0-10); HEMATOCRIT 47 % (40-54); HEMOGLOBIN 16.3 G/DL (13.3-17.7); LYMPHOCYTES # (AUTO) 3.3 X 10^3 (1.0-4.0); LYMPHOCYTES % (AUTO) 40 % (12-44); MEAN CORPUSCULAR HEMOGLOBIN 32 PG (25-34); MEAN CORPUSCULAR HGB CONC 35 G/DL (32-36); MEAN CORPUSCULAR VOLUME 92 FL (80-99); MEAN PLATELET VOLUME 10.6 FL (7.4-10.4); MONOCYTES # (AUTO) 0.7 X 10^3 (0.0-1.0); MONOCYTES % (AUTO) 9 % (0-12); NEUTROPHILS # (AUTO) 3.5 X 10^3 (1.8-7.8); NEUTROPHILS % (AUTO) 43 % (42-75); PLATELET COUNT 238 10^3/uL (130-400); RED CELL DISTRIBUTION WIDTH 12.8 % (10.0-14.5); WHITE BLOOD COUNT 8.2 10^3/uL (4.3-11.0)
--- NOTE | 2018-08-31 22:03 | NUR ---
PT RETURNS FROM CT DEPARTMENT, NO S/S OF DISTRESS.
[2018-08-31 22:13] LABS: FIBRIN DEGRADATION PRODUCTS 0.3 UG/ML (0.00-0.49); PROTHROMBIN TIME PATIENT 13.7 SEC (12.2-14.7)
[2018-08-31 22:23] LABS: MAGNESIUM 2.7 MG/DL (1.8-2.4)
[2018-08-31 22:25] LABS: ALANINE AMINOTRANSFERASE 12 U/L (0-55); ALBUMIN 4.5 GM/DL (3.2-4.5); ALKALINE PHOSPHATASE 89 U/L (40-136); BILIRUBIN,TOTAL 0.5 MG/DL (0.1-1.0); BUN/CREATININE RATIO 9; CALCIUM 9.6 MG/DL (8.5-10.1); CARBON DIOXIDE 20 MMOL/L (21-32); CHLORIDE 105 MMOL/L (98-107); CREATININE SERUM 1.16 MG/DL (0.60-1.30); GFR ESTIMATED > 60; GLUCOSE 119 MG/DL (70-105); POTASSIUM 3.9 MMOL/L (3.6-5.0); SODIUM 139 MMOL/L (135-145); TOTAL PROTEIN 7.3 GM/DL (6.4-8.2)
[2018-08-31] MEDS ORDERED: LACTATED RINGERS 1,000 ML IV ONE (22:34)
[2018-08-31 22:59] LABS: BILIRUBIN,URINE NEGATIVE (NEGATIVE); CLARITY,URINE CLEAR; COLOR,URINE YELLOW; GLUCOSE, URINE (UA) NEGATIVE (NEGATIVE); KETONES,URINE NEGATIVE (NEGATIVE); LEUKOCYTE ESTERASE ,URINE 1+ (NEGATIVE); NITRITE,URINE NEGATIVE (NEGATIVE); PH,URINE 6 (5-9); PROTEIN,URINE NEGATIVE (NEGATIVE); UROBILINOGEN,URINE 4 MG/DL (NORMAL)
[2018-08-31] MEDS ORDERED: methylPREDNISolone 125 MG (Solu-MEDROL) VIAL IVP ONE (23:00)
[2018-08-31 23:06] LABS: BACTERIA,URINE NEGATIVE /HPF; SQUAMOUS EPITHELIAL CELL,UR RARE /HPF; WBC,URINE RARE /HPF
[2018-08-31 23:09] LABS: AMPHETAMINE SCREEN, URINE NEGATIVE (NEGATIVE); BARBITURATE SCREEN URINE NEGATIVE (NEGATIVE); BENZODIAZEPINES SCREEN URINE NEGATIVE (NEGATIVE); CANNABINOID SCREEN, URINE NEGATIVE (NEGATIVE); COCAINE SCREEN URINE NEGATIVE (NEGATIVE); METHADONE STAT NEGATIVE (NEGATIVE); METHAMPHETAMINE SCREEN URINE S NEGATIVE (NEGATIVE); OPIATE SCREEN URINE NEGATIVE (NEGATIVE); OXYCODONE STAT NEGATIVE (NEGATIVE); PROPOXYPHENE STAT NEGATIVE (NEGATIVE); TRICYCLIC ANTIDEPRESSANTS SCRE NEGATIVE (NEGATIVE)
[2018-08-31] MEDS ORDERED: METH4TAB PO (23:12)
--- NOTE | 2018-08-31 23:12 | ED General ---
General Chief Complaint: Neuro-Stroke Like Symptoms Stated Complaint: CONVULSIONS Nursing Triage Note: PT PRESENTS FROM HOME, FREIND STATES THAT HE WINTESSED THE PT STAND UP, BECOME LIGHTHEADED, THEN SEAT HIMSELF ONTO THE COUCH AND WAS WITNESSED HAVING SPASTIC MUSCLE CONTRACTIONS FOR ROUGHLY 30 SECONDS. FRIEND DENIES WITNESSING THE PT HITTING HIS HEAD, PT DENIES HEAD OR NECK PAIN. PT STATES HIS LEFT ARM AND LEG ARE MUCH WEAKER THAN HIS RIGHT AND HE IS EXPERIENCING PAIN IN BOTH LEFT EXTREMITIES Nursing Sepsis Screen: No Definite Risk Allergies and Home Medications Allergies Coded Allergies: No Known Drug Allergies (Unverified , 09/20/12) Home Medications Aspirin/Acetaminophen/Caffeine 1 Each Tablet, 2 EACH PO Q6H, (Reported) Ondansetron HCl 4 Mg Tab, 4 MG PO Q6H PRN for NAUSEA Prescribed by: EVONNE CARCAMO on 04/14/16 1601 Pantoprazole Sodium 40 Mg Tablet.dr, 40 MG PO DAILY Prescribed by: PIOTR MARTINEZ on 03/21/162033 Past Hysrepz-Wssffb-Kgfgjx Hx Patient Social History Type Used: Cigarettes Recent Foreign Travel: No Contact w/Someone Who Travel: No Recent Infectious Disease Expo: No Recent Hopitalizations: Yes (1 MONTH AGO [facility]) Seasonal Allergies Seasonal Allergies: No Past Medical History Surgeries: Yes (HERNIA REPIAR; BILATERAL FOOT SURGERY) Abdominal, Orthopedic Respiratory: No Cardiac: No Neurological: No Reproductive Disorders: No Sexually Transmitted Disease: No Gastrointestinal: Yes Chronic Constipation Musculoskeletal: Yes (BILATERAL FOOT SURGERY) Endocrine: No Cancer: No Psychosocial: Yes Suicide Attempts, Depression Integumentary: No Blood Disorders: No Physical Exam Vital Signs Vital Signs - First Documented 08/31/18 21:37 Temp 98.4 Pulse 85 Resp 20 B/P (MAP) 123/83 (96) Pulse Ox 95 O2 Delivery Room Air Capillary Refill : Less Than 3 Seconds Height, Weight, BMI Height: 6'1" Weight: 220lbs. oz. 99.633573kj; 19.79 BMI Method:Stated Progress/Results/Core Measures Suspected Sepsis Recent Fever Within 48 Hours: No Infection Criteria Present: None New/Unexplained Altered Menta: No Sepsis Screen: No Definite Risk SIRS Temperature:98.4 Pulse: 85 Respiratory Rate: 20 Laboratory Tests 08/31/18 21:39: White Blood Count 8.2 Blood Pressure 123 /83 Mean: 96 Laboratory Tests 4/28/19 21:39: Creatinine 1.16, INR Comment 1.0, Platelet Count 238, Total Bilirubin 0.5 Results/Orders Lab Results Laboratory Tests Test 08/31/18 21:39 08/31/18 22:24 08/31/18 22:54 Range/Units White Blood Count 8.2 4.3-11.0 10^3/uL Red Blood Count 5.05 4.35-5.85 10^6/uL Hemoglobin 16.3 13.3-17.7 G/DL Hematocrit 47 40-54 % Mean Corpuscular Volume 92 80-99 FL Mean Corpuscular Hemoglobin 32 25-34 PG Mean Corpuscular Hemoglobin Concent 35 32-36 G/DL Red Cell Distribution Width 12.8 10.0-14.5 % Platelet Count 238 130-400 10^3/uL Mean Platelet Volume 10.6 H 7.4-10.4 FL Neutrophils (%) (Auto) 43 42-75 % Lymphocytes (%) (Auto) 40 12-44 % Monocytes (%) (Auto) 9 0-12 % Eosinophils (%) (Auto) 7 0-10 % Basophils (%) (Auto) 1 0-10 % Neutrophils # (Auto) 3.5 1.8-7.8 X 10^3 Lymphocytes # (Auto) 3.3 1.0-4.0 X 10^3 Monocytes # (Auto) 0.7 0.0-1.0 X 10^3 Eosinophils # (Auto) 0.5 H 0.0-0.3 10^3/uL Basophils # (Auto) 0.1 0.0-0.1 10^3/uL Prothrombin Time 13.7 12.2-14.7 SEC INR Comment 1.0 0.8-1.4 Activated Partial Thromboplast Time 32 24-35 SEC D-Dimer 0.30 0.00-0.49 UG/ML Sodium Level 139 135-145 MMOL/L Potassium Level 3.9 3.6-5.0 MMOL/L Chloride Level 105 98-107 MMOL/L Carbon Dioxide Level 20 L 21-32 MMOL/L Anion Gap 14 5-14 MMOL/L Blood Urea Nitrogen 10 7-18 MG/DL Creatinine 1.16 0.60-1.30 MG/DL Estimat Glomerular Filtration Rate > 60 BUN/Creatinine Ratio 9 Glucose Level 119 H 70-105 MG/DL Calcium Level 9.6 8.5-10.1 MG/DL Corrected Calcium 9.2 8.5-10.1 MG/DL Magnesium Level 2.7 H 1.8-2.4 MG/DL Total Bilirubin 0.5 0.1-1.0 MG/DL Aspartate Amino Transf (AST/SGOT) 13 5-34 U/L Alanine Aminotransferase (ALT/SGPT) 12 0-55 U/L Alkaline Phosphatase 89 40-136 U/L Troponin I < 0.028 <0.028 NG/ML Total Protein 7.3 6.4-8.2 GM/DL Albumin 4.5 3.2-4.5 GM/DL Serum Alcohol < 10 <10 MG/DL Glucometer 115 H 70-110 MG/DL Urine Color YELLOW Urine Clarity CLEAR Urine pH 6 5-9 Urine Specific [place] 1.015 L 1.016-1.022 Urine Protein NEGATIVE NEGATIVE Urine Glucose (UA) NEGATIVE NEGATIVE Urine Ketones NEGATIVE NEGATIVE Urine Nitrite NEGATIVE NEGATIVE Urine Bilirubin NEGATIVE NEGATIVE Urine Urobilinogen 4 H NORMAL MG/DL Urine Leukocyte Esterase 1+ H NEGATIVE Urine RBC (Auto) NEGATIVE NEGATIVE Urine RBC NONE /HPF Urine WBC RARE /HPF Urine Squamous Epithelial Cells RARE /HPF Urine Crystals NONE /LPF Urine Bacteria NEGATIVE /HPF Urine Casts NONE /LPF Urine Mucus SMALL H /LPF Urine Culture Indicated NO My Orders Orders - PIOTR MARTINEZ DO Cbc With Automated Diff (08/31/18 21:44) Protime With Inr (08/31/18 21:44) Partial Thromboplastin Time (08/31/18 21:44) Comprehensive Metabolic Panel (08/31/18 21:44) Fibrin Degradation Products (08/31/18 21:44) Troponin I (08/31/18 21:44) Ua Culture If Indicated (08/31/18 21:44) Chest 1 View, Ap/Pa Only (08/31/18 21:44) Catheter(Urinary) Insert & Ass 03,15 (08/31/18 21:44) Ekg Tracing (08/31/18 21:44) Nothing By Mouth (09/01/18 Breakfast) Accucheck Stat ONCE (08/31/18 21:44) Ed Iv/Invasive Line Start (08/31/18 21:44) Ed Iv/Invasive Line Start (08/31/18 21:44) Vital Signs Stroke Patient Q15M (08/31/18 21:44) Ct Head Wo-R/O Stroke (08/31/18 21:44) O2 (08/31/18 21:44) Intake & Output 06,14,22 (08/31/18 21:44) Monitor-Rhythm Ecg Trace Only (08/31/18 21:44) Dysphagia Screening Tool (08/31/18 21:44) Post Thrombolytic Adminstratio (08/31/18 21:44) Lipid Panel (09/01/18 06:00) Alcohol (08/31/18 21:53) Drug Screen Stat (Urine) (08/31/18 21:53) Magnesium (08/31/18 21:53) Ed Iv/Invasive Line Start (08/31/18 22:34) Lactated Ringers (Lr 1000 Ml Iv Solution (08/31/18 22:34) Methylprednisolone Sod Succ (Solu-Medrol (08/31/18 23:00) Vital Signs/I&O 08/31/18 08/31/18 21:37 21:39 Temp 98.4 Pulse 85 Resp 20 B/P (MAP) 123/83 (96) Pulse Ox 95 O2 Delivery Room Air Room Air Capillary Refill : Less Than 3 Seconds Blood Pressure Mean: 96 Point of Care Testing Finger Stick Blood Glucose: 115 Departure Impression Primary Impression: Syncope Additional Impression: CHRONIC HEADACHE COMPLAINTS Disposition: 01 HOME, SELF-CARE Condition: Improved Departure-Patient Inst. Referrals: NO,LOCAL PHYSICIAN (PCP) Primary Care Physician JACQUELINE HOUSER MD Patient Instructions: Headache, Adult (DC), Syncope (Fainting) (DC) Add. Discharge Instructions: HOME, REST LOTS OF CLEAR LIQUIDS FOLLOW UP WITH DR. HOUSER OR DR OF CHOICE THIS WEEK FOR FURTHER CARE RETURN TO ER IF WORSE All discharge instructions reviewed with patient and/or family. Voiced understanding. Scripts Methylprednisolone (Medrol) 4 Mg Tab.ds.pk 4 MG PO UD, #1 PKG Prov: JUANPIOTRScar Sandoval DO 08/31/18 JUANPIOTRScar Sandoval DO Aug 31, 2018 23:12
[2018-08-31 23:50] VITALS: BP 105/63
--- NOTE | 2018-09-01 07:11 | Diagnostic Imaging Report ---
PROCEDURE: CT head wo r/o stroke. TECHNIQUE: Multiple contiguous axial images were obtained through the brain without the use of intravenous contrast. Auto Exposure Controls were utilized during the CT exam to meet ALARA standards for radiation dose reduction. INDICATION: Seizure. Comparison: 04/14/2016 Findings: No hyperdense hemorrhage or space-occupying mass. No hydrocephalus or midline shift. The basilar cisterns are normal. Null-white matter differentiation is well preserved. The mastoid air cells are clear. Paranasal sinuses are normal. No focal osseous abnormality of the calvarium. Impression: No acute intracranial process. Findings are in agreement with the preliminary report. Dictated by: Dictated on workstation # [id number]
--- NOTE | 2018-09-01 07:31 | Diagnostic Imaging Report ---
CHEST 1 VIEW, AP/PA ONLY Indication: Seizure Comparison: 03/21/2016 Findings: No focal airspace disease in the visualized lungs. Please note that the posterior lower lobes are poorly evaluated by portable radiography. No pleural effusion or pneumothorax. Normal cardiomediastinal silhouette. Impression: No acute cardiopulmonary process by portable radiography. Dictated by: Dictated on workstation # [id number]
== END 2018-08-31 23:50 | disposition home or self-care (01) ==
LOC: EDUNIT# 21:36 → ER 21:39
DX: R55 Syncope and collapse (principal); R51 Headache; G89.29 Other chronic pain; F32.9 Major depressive disorder, single episode, unspecified; Z79.82 Long term (current) use of aspirin; Z98.890 Other specified postprocedural states; Z87.19 Personal history of other diseases of the digestive system; Z91.5 Personal history of self-harm
CPT/HCPCS: 36415; 70450; 71045; 80053; 80306; 80320; 81000; 82962; 83735; 84484; 85025; 85379; 85610; 85730; 93005; 93041

== ENCOUNTER 2022-10-17 06:36 | Emergency (ER) | payer OTHER ==
[~2022-10-17] VITALS: Ht 185 cm; Wt 131.5 kg
[~2022-10-17 06:36] MED LIST changes: -ASPI-789 PO; +ASPI1TAB23 PO
--- NOTE | 2022-10-17 06:54 | ED Abdominal Pain ---
General Stated Complaint: LOWER ABD PAIN History of Present Illness Date Seen by Provider: Oct 17, 2022 Time Seen by Provider: 06:52 Initial Comments 32-year-old male presents with abdominal pain has been going on and off for 6 months. In the lower abdomen he reports that goes around to the right flank. He is little bit nauseated no vomiting. He reports normal bowel movement yesterday. No fevers or chills. Comes in today because the pain is a lot worse. Allergies and Home Medications Allergies Coded Allergies: No Known Drug Allergies (Unverified , 09/20/12) Patient Home Medication List Home Medication List Reviewed: Yes Aspirin/Acetaminophen/Caffeine (Excedrin Migraine Caplet) 1 Each Tablet, 2 EACH PO Q6H, (Reported) Entered as Reported by: AYDEE BETTS on 03/21/161810 Methylprednisolone (Medrol) 4 Mg Tab.ds.pk, 4 MG PO UD Prescribed by: PIOTR MARTINEZ on 08/31/18 2312 Ondansetron HCl (Zofran) 4 Mg Tab, 4 MG PO Q6H PRN for NAUSEA Prescribed by: EVONNE CARCAMO on 04/14/16 1601 Pantoprazole Sodium (Protonix) 40 Mg Tablet.dr, 40 MG PO DAILY Prescribed by: PIOTR MARTINEZ on 03/21/162033 Review of Systems Review of Systems Constitutional: No chills, No fever EENTM: No Symptoms Reported Respiratory: No Symptoms Reported Cardiovascular: No Symptoms Reported Gastrointestinal: Abdominal Pain; Denies Diarrhea; Nausea; Denies Vomiting Genitourinary: Denies Burning; Flank Pain; Denies Pain Musculoskeletal: no symptoms reported Skin: no symptoms reported Psychiatric/Neurological: No Symptoms Reported Endocrine: No Symptoms Reported Past Zvnuysh-Shbxud-Gjeuzn Hx Seasonal Allergies Seasonal Allergies: No Past Medical History Surgeries: Yes (HERNIA REPIAR; BILATERAL FOOT SURGERY) Abdominal, Orthopedic Respiratory: No Cardiac: No Neurological: Yes Concussion, Headaches /Migraines Reproductive Disorders: No Sexually Transmitted Disease: No Gastrointestinal: Yes Chronic Constipation Musculoskeletal: Yes (BILATERAL FOOT SURGERY) Endocrine: No HEENT: No Cancer: No Psychosocial: Yes (OVERDOSE ON HYDROCODONE, LUNESTA, CLONIDINE/TENEX 08/20/10) Anxiety, Suicide Attempts, Depression Integumentary: No Blood Disorders: No Physical Exam Vital Signs Vital Signs - First Documented 10/17/22 06:45 Temp 36.8 Pulse 63 Resp 96 B/P (MAP) 142/86 (104) O2 Delivery Room Air Capillary Refill : Height/Weight/BMI Height: 6'1" Weight: 220lbs. oz. 99.207547oe; 19.79 BMI Method:Stated General Appearance: WD/WN, no apparent distress Respiratory: lungs clear, normal breath sounds Cardiovascular: normal peripheral pulses, regular rate, rhythm Gastrointestinal: soft, tenderness (mild lower abd ) Extremities: normal range of motion Back: CVA tenderness (R) Neurologic/Psychiatric: alert, normal mood/affect, oriented x 3 Skin: normal color, warm/dry Progress/Results/Core Measures Results/Orders Lab Results Laboratory Tests Test 10/17/22 06:50 10/17/22 07:10 Range/Units White Blood Count 6.5 4.3-11.0 10^3/uL Red Blood Count 4.76 4.30-5.52 10^6/uL Hemoglobin 15.1 13.3-17.7 g/dL Hematocrit 43 40-54 % Mean Corpuscular Volume 90 80-99 fL Mean Corpuscular Hemoglobin 32 25-34 pg Mean Corpuscular Hemoglobin Concent 35 32-36 g/dL Red Cell Distribution Width 11.9 10.0-14.5 % Platelet Count 284 130-400 10^3/uL Mean Platelet Volume 10.2 9.0-12.2 fL Immature Granulocyte % (Auto) 0 % Neutrophils (%) (Auto) 53 42-75 % Lymphocytes (%) (Auto) 33 12-44 % Monocytes (%) (Auto) 11 0-12 % Eosinophils (%) (Auto) 2 0-10 % Basophils (%) (Auto) 1 0-10 % Neutrophils # (Auto) 3.5 1.8-7.8 10^3/uL Lymphocytes # (Auto) 2.1 1.0-4.0 10^3/uL Monocytes # (Auto) 0.7 0.0-1.0 10^3/uL Eosinophils # (Auto) 0.1 0.0-0.3 10^3/uL Basophils # (Auto) 0.1 0.0-0.1 10^3/uL Immature Granulocyte # (Auto) 0.0 0.0-0.1 10^3/uL Sodium Level 138 135-145 MMOL/L Potassium Level 4.2 3.6-5.0 MMOL/L Chloride Level 105 98-107 MMOL/L Carbon Dioxide Level 25 21-32 MMOL/L Anion Gap 8 5-14 MMOL/L Blood Urea Nitrogen 15 7-18 MG/DL Creatinine 1.14 0.60-1.30 MG/DL Estimat Glomerular Filtration Rate 88 BUN/Creatinine Ratio 13 Glucose Level 107 H 70-105 MG/DL Calcium Level 9.6 8.5-10.1 MG/DL Corrected Calcium 9.3 8.5-10.1 MG/DL Magnesium Level 2.0 1.6-2.4 MG/DL Total Bilirubin 0.4 0.1-1.0 MG/DL Aspartate Amino Transf (AST/SGOT) 16 5-34 U/L Alanine Aminotransferase (ALT/SGPT) 24 0-55 U/L Alkaline Phosphatase 87 40-136 U/L C-Reactive Protein High Sensitivity 0.52 H 0.00-0.50 MG/DL Total Protein 7.3 6.4-8.2 GM/DL Albumin 4.4 3.2-4.5 GM/DL Urine Color YELLOW Urine Clarity CLEAR Urine pH 7.0 5-9 Urine Specific [place] 1.015 L 1.016-1.022 Urine Protein NEGATIVE NEGATIVE Urine Glucose (UA) NEGATIVE NEGATIVE Urine Ketones NEGATIVE NEGATIVE Urine Nitrite NEGATIVE NEGATIVE Urine Bilirubin NEGATIVE NEGATIVE Urine Urobilinogen 1.0 < = 1.0 MG/DL Urine Leukocyte Esterase NEGATIVE NEGATIVE Urine RBC (Auto) NEGATIVE NEGATIVE Urine RBC NONE /HPF Urine WBC NONE /HPF Urine Squamous Epithelial Cells NONE /HPF Urine Crystals NONE /LPF Urine Bacteria NEGATIVE /HPF Urine Casts NONE /LPF Urine Mucus NEGATIVE /LPF Urine Culture Indicated NO My Orders Orders - KUMAR,SIMON L DO Cbc With Automated Diff (10/17/22 06:54) Comprehensive Metabolic Panel (10/17/22 06:54) Hs C Reactive Protein (10/17/22 06:54) Magnesium (10/17/22 06:54) Ua Culture If Indicated (10/17/22 06:54) Ed Iv/Invasive Line Start (10/17/22 06:54) Abdomen, Flat & Upright/Decub (10/17/22 07:51) Ketorolac Injection (Toradol Injection) (10/17/22 07:51) Vital Signs/I&O 10/17/22 06:45 Temp 36.8 Pulse 63 Resp 96 B/P (MAP) 142/86 (104) O2 Delivery Room Air Progress Progress Note : Progress Note Patient diagnostic studies were ordered reviewed and interpreted by me. Patient has no concerning findings on his labs including negative WBC, CRP, electrolytes, liver enzymes. Patient's UA is negative with no signs of hematuria. Patient had an x-ray of his abdomen was obtained and reviewed with initial interpretation of negative by me with final interpretation per radiology report. Patient with very minor tenderness on physical exam with no significant or concerning findings on exam labs or x-ray. At this time I do not feel CT would be indicated. Patient's pain has been going on and off for a year. I suspect this likely may be due to some mild retained stool on the x-ray. Patient should follow-up with his primary care provider for further evaluation and at that time they can perform CT if they feel it would be further indicated or have him follow-up with GI specialist for possible EGD or colonoscopy. Patient is at increased risk for morbidity and mortality due to social determinants of health. He is stable and discharged Diagnostic Imaging Diagonstic Imaging: Xray Plain Films/CT/US/NM/MRI: abdomen Comments Date of Exam:10/17/22 ABDOMEN, FLAT & UPRIGHT/DECUB INDICATION: Right-sided abdominal/back pain x2 hours. Intermittent symptoms x6 months. TECHNIQUE: Supine and upright radiograph of the abdomen 8:14 AM CORRELATION STUDY: None FINDINGS: Imaging of the abdomen demonstrates the bowel gas pattern to be unremarkable and without evidence for obstruction. Mild stool retention throughout the colon. No significant differential air-fluid levels. No evidence for free air. No pathologic intraabdominal calcifications. Minimal rightward rotation lumbar spine. IMPRESSION: 1. Non-obstructed appearing bowel gas pattern. Reviewed: Reviewed by Me, Reviewed/Discussed Departure Impression Primary Impression: Abdominal pain Qualified Codes: R10.30 - Lower abdominal pain, unspecified Disposition: 01 HOME, SELF-CARE Condition: Stable Departure-Patient Inst. Referrals: SHRUTHI GIORDANO DO (PCP/Family) Primary Care Physician Patient Instructions: Gas and bloating, Severe Abdominal Pain, Adult (DC) Add. Discharge Instructions: Please follow-up with your primary care provider for further outpatient evaluation and recommendations SIMON KUMAR DO Oct 17, 2022 06:53
[2022-10-17 06:59] LABS: BASOPHILS # (AUTO) 0.1 10^3/uL (0.0-0.1); BASOPHILS % (AUTO) 1 % (0-10); EOSINOPHILS # (AUTO) 0.1 10^3/uL (0.0-0.3); EOSINOPHILS % (AUTO) 2 % (0-10); HEMATOCRIT 43 % (40-54); HEMOGLOBIN 15.1 g/dL (13.3-17.7); LYMPHOCYTES # (AUTO) 2.1 10^3/uL (1.0-4.0); LYMPHOCYTES % (AUTO) 33 % (12-44); MEAN CORPUSCULAR HEMOGLOBIN 32 pg (25-34); MEAN CORPUSCULAR HGB CONC 35 g/dL (32-36); MEAN CORPUSCULAR VOLUME 90 fL (80-99); MEAN PLATELET VOLUME 10.2 fL (9.0-12.2); MONOCYTES # (AUTO) 0.7 10^3/uL (0.0-1.0); MONOCYTES % (AUTO) 11 % (0-12); NEUTROPHILS # (AUTO) 3.5 10^3/uL (1.8-7.8); NEUTROPHILS % (AUTO) 53 % (42-75); PLATELET COUNT 284 10^3/uL (130-400); WHITE BLOOD COUNT 6.5 10^3/uL (4.3-11.0)
[2022-10-17 07:07] LABS: ALBUMIN 4.4 GM/DL (3.2-4.5)
[2022-10-17 07:08] LABS: POTASSIUM 4.2 MMOL/L (3.6-5.0)
[2022-10-17 07:09] LABS: CALCIUM 9.6 MG/DL (8.5-10.1)
[2022-10-17 07:10] LABS: TOTAL PROTEIN 7.3 GM/DL (6.4-8.2)
[2022-10-17 07:12] LABS: BILIRUBIN,TOTAL 0.4 MG/DL (0.1-1.0)
[2022-10-17 07:13] LABS: BILIRUBIN,URINE NEGATIVE (NEGATIVE); CLARITY,URINE CLEAR; COLOR,URINE YELLOW; GLUCOSE, URINE (UA) NEGATIVE (NEGATIVE); KETONES,URINE NEGATIVE (NEGATIVE); LEUKOCYTE ESTERASE ,URINE NEGATIVE (NEGATIVE); NITRITE,URINE NEGATIVE (NEGATIVE); PROTEIN,URINE NEGATIVE (NEGATIVE)
[2022-10-17 07:14] LABS: CREATININE SERUM 1.14 MG/DL (0.60-1.30)
[2022-10-17 07:42] LABS: BACTERIA,URINE NEGATIVE /HPF
[2022-10-17] MEDS ORDERED: KETOROLAC 30 MG/ML VIAL IVP STA (07:51)
--- NOTE | 2022-10-17 08:11 | Diagnostic Imaging Report ---
INDICATION: Right-sided abdominal/back pain x2 hours. Intermittent symptoms x6 months. TECHNIQUE: Supine and upright radiograph of the abdomen 8:14 AM CORRELATION STUDY: None FINDINGS: Imaging of the abdomen demonstrates the bowel gas pattern to be unremarkable and without evidence for obstruction. Mild stool retention throughout the colon. No significant differential air-fluid levels. No evidence for free air. No pathologic intraabdominal calcifications. Minimal rightward rotation lumbar spine. IMPRESSION: 1. Non-obstructed appearing bowel gas pattern. Dictated by: Dictated on workstation # [id number]
[2022-10-17 08:27] VITALS: BP 132/72
== END 2022-10-17 08:27 | disposition home or self-care (01) ==
LOC: EDUNIT# 06:36 → ER 06:39
DX: R10.31 Right lower quadrant pain (principal); Z87.19 Personal history of other diseases of the digestive system; Z98.890 Other specified postprocedural states; Z28.310 Unvaccinated for COVID-19
CPT/HCPCS: 36415; 74019; 80053; 81000; 83735; 85025; 86141